=== PATIENT | female | born 1990 | race African-American/Black ===

== ENCOUNTER 2016-12-22 10:58 | Emergency (ER) | payer OTHER ==
[~2016-12-22] VITALS: Ht 190.5 cm; Wt 79.4 kg
[~2016-12-22 10:58] MED LIST: CLINDAMYCIN HC300 MG PO; KEFLEX500 MG PO; PROVENTIL0.09 MG/AC IH; TRAMADOL HCL50 MG PO; TRIMOX500 MG PO; VICODIN 5/500 505 MG PO
[2016-12-22] MEDS ORDERED: AVPAK AZITHROM250 M1 PO (12:16)
== END 2016-12-22 12:24 | disposition home or self-care (01) ==
LOC: ED 10:58
DX: J06.9 Acute upper respiratory infection, unspecified (principal)

== ENCOUNTER 2018-01-15 02:52 | Emergency (ER) | payer OTHER ==
[~2018-01-15] VITALS: Wt 84.0 kg
[~2018-01-15 02:52] MED LIST changes: +AVPAK AZITHROM250 M1 PO
[2018-01-15] MEDS ORDERED: PROAIR HFA8.5 GM INH (04:12)
== END 2018-01-15 04:18 | disposition home or self-care (01) ==
LOC: ED 02:52
DX: J45.901 Unspecified asthma with (acute) exacerbation (principal); Z79.899 Other long term (current) drug therapy; Z88.1 Allergy status to other antibiotic agents; Z88.8 Allergy status to other drugs, medicaments and biological substances

== ENCOUNTER 2018-04-20 20:46 | Emergency (ER) | payer OTHER ==
[~2018-04-20] VITALS: Ht 190.5 cm; Wt 86.2 kg
[~2018-04-20 20:46] MED LIST changes: +PROAIR HFA8.5 GM INH
== END 2018-04-20 21:45 | disposition home or self-care (01) ==
LOC: ED 20:46
DX: J06.9 Acute upper respiratory infection, unspecified (principal); J45.909 Unspecified asthma, uncomplicated; Z88.8 Allergy status to other drugs, medicaments and biological substances

== ENCOUNTER → 2021-06-16 | Outpatient (CLI) | payer OTHER | END | disposition home or self-care (01) | LOC: COVID19 16:06 | PROVIDERS: ATTEND Internal Medicine | DX: U07.1 COVID-19 (principal) ==